=== PATIENT | female | born 1965 | race Two or more races ===

== ENCOUNTER 2021-05-06 13:21 | Emergency (ER) | payer MEDICAID ==
[~2021-05-06] VITALS: Ht 167.6 cm; Wt 90.3 kg
[2021-05-06 13:53] LABS: HEMATOCRIT 40.8 % (31.2-41.9); MEAN CORPUSCULAR HEMOGLOBIN 30.6 uug (24.7-32.8); MEAN CORPUSCULAR VOLUME 91.4 fL (75.5-95.3); PLATELET COUNT (AUTO) 229 K/uL (179-408)
[2021-05-06 14:01] LABS: CREATININE 0.8 mg/dL (0.6-1.3)
[2021-05-06 14:06] LABS: BILIRUBIN,DIRECT 0.1 mg/dL (0.0-0.2); BILIRUBIN,TOTAL 0.5 mg/dL (0.2-1.0)
--- NOTE | 2021-05-06 15:21 | NUR ---
Patient discharged to home in stable condition. Written and verbal after care instructions given. Patient verbalizes understanding of instructions. Stressed follow up or return to ER for worsening s/s.
[2021-05-06 15:22] VITALS: BP 121/81
== END 2021-05-06 15:22 | disposition home or self-care (01) ==
LOC: ER 13:21
DX: R10.9 Unspecified abdominal pain (principal); Z90.710 Acquired absence of both cervix and uterus; Z98.890 Other specified postprocedural states
CPT/HCPCS: 71045; 83690; 85025; A4663